=== PATIENT | female | born 1930 | race Caucasian/White ===

== ENCOUNTER 2016-09-29 11:53 | Outpatient (CLI) ==
[2013-07-21 08:06] VITALS: BMI 15.2
[2016-09-29 12:07] LABS: BILIRUBIN,URINE Negative (NEGATIVE); KETONES,URINE Negative (NEGATIVE); LEUKOCYTE ESTERASE ,URINE Negative (NEGATIVE); NITRITE,URINE Negative (NEGATIVE); PROTEIN,URINE Negative (NEGATIVE); URINE, BLOOD Negative (NEGATIVE)
[2016-09-29 12:08] LABS: ADD URINE MICROSCOPIC NO
== END 2016-09-29 11:54 | disposition home or self-care (01) ==
LOC: NONPT 11:53
PROVIDERS: ATTEND Family Medicine
DX: R13.12 Dysphagia, oropharyngeal phase (principal); R52 Pain, unspecified; R41.0 Disorientation, unspecified
CPT/HCPCS: 81001

== ENCOUNTER 2016-11-06 12:50 | Emergency (ER) ==
[2016-11-06 13:09] VITALS: BP 144/79; TEMP 99; BMI 19.9
[2016-11-06 13:31] LABS: BASOPHILS % (AUTO) 0.5 % (0.0-3.0); EOSINOPHILS # (AUTO) 0.2 K/ul (0.0-0.7); EOSINOPHILS % (AUTO) 3.1 % (0.0-7.0); HEMATOCRIT 35.2 % (37.0-47.0); HEMOGLOBIN 11.6 g/dl (12.0-16.0); IMMATURE GRANULOCYTE % (AUTO) 0.7 % (0.0-5.0); LYMPHOCYTES # (AUTO) 2.1 K/uL (0.60-3.4); LYMPHOCYTES % (AUTO) 27.5 (10.0-50.0); MEAN CORPUSCULAR HEMOGLOBIN 29.4 pg (27.0-31.0); MEAN CORPUSCULAR VOLUME 89.3 fl (81.0-99.0); MONOCYTES # (AUTO) 0.5 K/uL (0.4-2.0); MONOCYTES % (AUTO) 6.8 (0-10); NEUTROPHILS # (AUTO) 4.6 K/ul (2.0-6.9); NEUTROPHILS % (AUTO) 61.4; PLATELET COUNT 177 10^3/uL (140-440); RED BLOOD COUNT 3.94 10^6/ul (4.20-5.40); WHITE BLOOD COUNT 7.45 K/ul (4.6-10.2)
[2016-11-06 13:51] LABS: ALBUMIN/GLOBULIN RATIO 0.97; ANION GAP 12.4; BILIRUBIN,TOTAL 0.37 mg/dL (0.00-1.20); BUN/CREATININE RATIO 31.76; CALCIUM 8.8 mg/dL (8.2-10.2); CREATININE 0.85 mg/dL (0.60-1.30); POTASSIUM 4.4 mmol/L (3.5-5.10); TOTAL PROTEIN 6.1 g/dL (5.8-8.1); URIC ACID 5.8 mg/dL (2.4-6.0)
--- NOTE | 2016-11-06 14:13 | CT ---
EXAM: CT lumbar spine without contrast. HISTORY: Lumbar pain COMPARISON: CT lumbar spine 10/17/2012 and multiple priors TECHNIQUE: Serial axial images of the spine were obtained from the lower thoracic spine through the pelvis without contrast. These were viewed in multiple planes. FINDINGS: Vertebral bodies demonstrate normal height, disc space and alignment. There is no acute compression fracture or subluxation. There is mild scattered facet arthropathy. The posterior proc esses are normal. There is no lytic or blastic lesion. There is mild leftward curvature of the lumb ar spine. L1-L2: Normal L2-L3: Mild facet arthropathy with no central or neural foraminal narrowing. L3-L4: Mild facet arthropathy with no central or neural foraminal narrowing. L4-L5: Small disc bulge and facet arthropathy with mild neural foraminal narrowing bilaterally. L5-S1: Small broad-based disc bulge and facet arthropathy with no central or neural foraminal narrow ing. Limited views of the soft tissues demonstrate moderate atherosclerotic disease. There is artifact o bscuring the right kidney. IMPRESSION: 1. No acute compression fracture or subluxation of the lumbar spine. No change since 10/17/2012. 2. Mild scattered degenerative disease with minimal neural foraminal narrowing noted at L4-L5.
--- NOTE | 2016-11-06 14:26 | CT ---
EXAM: CT pelvis HISTORY: Left leg pain with no history of recent trauma. TECHNIQUE: CT pelvis without contrast. Multiplanar images provided. FINDINGS: Comparison may be made to 07/26/2012. Moderately severe atherosclerotic disease. Bowel gas pattern nonobstructive. No ascites or inflamm atory infiltration of the abdominal fat. Urinary bladder appears normal. No uterus is identified. Prominent fatty bilateral inguinal canals. The bones appear significantly demineralized. No acute fracture is identified. Joints are intact. There is moderate symmetric bilateral hip osteoarthritis. Sacroiliac joints are intact with mild to moderate arthropathy. There is no obvious sacral fracture. Facet arthropathy of the lumbosacral j unction is at least moderate. IMPRESSION: 1. The bones appear significantly demineralized. No acute fracture is identified. Joints are intac t. There is moderate symmetric bilateral hip osteoarthritis. Sacroiliac joints are intact with mil d to moderate arthropathy. There is no obvious sacral fracture. Facet arthropathy of the lumbosacr al junction is at least moderate. 2. Atherosclerotic disease.
--- NOTE | 2016-11-06 14:46 | ED.PDOC ---
General ED Provider: Dr. SHREYAS FANG Chief Complaint: Extremity Pain/Injury Stated Complaint: LEFT LEG AND BACK PAIN Time Seen by Physician: 13:00 (NEGATIVE TRAUMA) Information Source: Patient, Family, Fpc, EMT Exam Limitations: No limitations Primary Care Provider: CHARISMA BURTON Nursing and Triage Documentation Reviewed and Agree: Yes Musculoskeletal Complaint Exam - Lower Extremity Complaint/Exam Location of Pain: Reports: Left, Leg ( LOW BACK PAIN) Mechanism of Injury: Reports: No known trauma Onset/Duration: TODAY Symptoms Are: Resolved Onset of Pain: Reports: Hours Initial Severity: Moderate Current Severity: None Location: Reports: Discrete Character: Reports: Aching, Spasmodic, Stiffness Alleviating: Reports: Rest, Position Aggravating: Reports: None Able to Bear Weight: No Associated Signs and Symptoms: Denies: Swelling, Redness, Bruising, Fever, Weakness, Numbness, Tingling DVT Risk Factors: Reports: Recent bedrest Septic Arthritis Risk Factors: Reports: Extremes of age Lower Extremity Findings: Absent: Swelling, Ecchymosis, Abnormal contour, Rotation, Ligamentous instability, Erythema, Warmth, Foreign body, Tenderness, Limited range of motion Differential Diagnoses: Arthritis, Fracture, Sciatica, Strain, Sprain Review of Systems - Review Of Systems Constitutional: Reports: No symptoms Eyes: Reports: No symptoms Ears, Nose, Mouth, Throat: Reports: No symptoms Respiratory: Reports: No symptoms Cardiac: Reports: No symptoms GI: Reports: No symptoms : Reports: No symptoms Musculoskeletal: Reports: Back pain Skin: Reports: No symptoms Neurological: Reports: No symptoms Endocrine: Reports: No symptoms Hematologic/Lymphatic: Reports: No symptoms All Other Systems: Reviewed and Negative Past Medical History - Past Medical History Endocrine: Reports: Dyslipidemia Cardiovascular: Reports: Unknown Respiratory: Reports: Unknown Hematological: Reports: Anemia Gastrointestinal: Reports: None Genitourinary: Reports: None Neuro/Psych: Reports: None Musculoskeletal: Reports: None Cancer: Reports: None Last Menstrual Period: unknown - Surgical History General Surgical History: Reports: Unknown - Family History Family History: Reports: Unknown - Social History Smoking Status: Never smoker Hx Substance Use: No Alcohol Screening: None Physical Exam - Physical Exam Appearance: Well-appearing, No pain distress, Well-nourished Eyes: MAGALY, EOMI, Conjunctiva clear ENT: Ears normal, Nose normal, Oropharynx normal Respiratory: Airway patent, Breath sounds clear, Breath sounds equal, Respirations nonlabored Cardiovascular: RRR, Pulses normal, No rub, No murmur GI/: Soft, Nontender, No masses, Bowel sounds normal, No Organomegaly Musculoskeletal: Normal strength, ROM intact, No edema, No calf tenderness Skin: Warm, Dry, Normal color Neurological: Sensation intact, Motor intact, Reflexes intact, Cranial nerves intact, Alert, Oriented Psychiatric: Affect appropriate, Mood appropriate Interpretation - Radiology Interpretation Radiology Interpretation By: Radiologist Radiology Results: No acute changes Critical Care Note - Critical Care Note Total Time (mins): 0 Course - Course Hematology/Chemistry: 11/06/16 13:28 11/06/16 13:28 Orders, Labs, Meds: Lab Review 11/06/16 13:28 WBC 7.45 RBC 3.94 L Hgb 11.6 L Hct 35.2 L MCV 89.3 MCH 29.4 MCHC 33.0 RDW Coeff of Lorrie 14.8 Plt Count 177 Immature Gran % (Auto) 0.7 Neut % (Auto) 61.4 Lymph % (Auto) 27.5 Mills % (Auto) 6.8 Eos % (Auto) 3.1 Baso % (Auto) 0.5 Immature Gran # (Auto) 0.1 Neut # 4.6 Lymph # 2.1 Mills # 0.5 Eos # 0.2 Baso # 0.0 Sodium 138 Potassium 4.4 Chloride 108 H Carbon Dioxide 22 L Anion Gap 12.4 BUN 27 H Creatinine 0.85 Estimated GFR (MDRD) 63.00 BUN/Creatinine Ratio 31.76 Glucose 142 H Uric Acid 5.8 Calcium 8.8 Total Bilirubin 0.37 AST 19 ALT 25 Alkaline Phosphatase 60 Total Protein 6.1 Albumin 3.0 L Globulin 3.1 Albumin/Globulin Ratio 0.97 Orders Category Date Time Status CBC W/ AUTO DIFF Stat LAB 11/06/16 13:28 Completed COMPREHENSIVE METABOLIC PANEL Stat LAB 11/06/16 13:28 Completed URIC ACID Stat LAB 11/06/16 13:[address] LUMBAR SPINE W/O CONTRAST Stat RADS 11/06/16 13:[address] PELVIS W/O CONTRAST Stat RADS 11/06/16 13:19 Completed Vital Signs: Temp Pulse Resp BP Pulse Ox 11/06/16 12:52 99 F 71 20 144/79 H 94 L Departure - Departure Time of Disposition: 16:00 Disposition: HOME SELF-CARE Discharge Problem: Leg pain, left, Injury of lower extremity Instructions: Leg Pain (ED), Arthralgia (ED), Pancreatitis (ED) Condition: Good Pt referred to PMD for follow-up: No Additional Instructions: Please call your Family Physician as soon as possible to schedule a follow-up appointment. Allergies/Adverse Reactions: Allergies alendronate sodium [From Fosamax] Adverse Reaction (Verified 07/21/13 08:01) amitriptyline HCl [From Elavil] Adverse Reaction (Verified 07/21/13 08:01) atorvastatin calcium [From Lipitor] Adverse Reaction (Verified 07/21/13 08:01) cefaclor [From Ceclor] Adverse Reaction (Verified 07/21/13 08:01) cefadroxil hydrate [From Duricef] Adverse Reaction (Verified 07/21/13 08:01) cefuroxime axetil [From Ceftin] Adverse Reaction (Verified 07/21/13 08:01) cephalexin monohydrate [From Keflex] Adverse Reaction (Verified 07/21/13 08:01) clarithromycin [From Biaxin] Adverse Reaction (Verified 07/21/13 08:01) diphenhydramine HCl [From Benadryl] Adverse Reaction (Verified 07/21/13 08:01) etodolac [From Lodine] Adverse Reaction (Verified 11/06/16 14:00) ezetimibe [From Vytorin 10-10] Adverse Reaction (Verified 07/21/13 08:01) fish derived Adverse Reaction (Verified 07/21/13 08:01) fluvastatin sodium [From Lescol] Adverse Reaction (Verified 07/21/13 08:01) iodine Adverse Reaction (Verified 07/21/13 08:01) meloxicam [From Mobic] Adverse Reaction (Verified 07/21/13 08:01) povidone-iodine [From Betadine] Adverse Reaction (Verified 11/06/16 14:00) rosuvastatin calcium [From Crestor] Adverse Reaction (Verified 07/21/13 08:01) simvastatin [From Vytorin 10-10] Adverse Reaction (Verified 07/21/13 08:01) soap [From Betadine] Adverse Reaction (Verified 11/06/16 14:00) sulfamethoxazole [From Bactrim] Adverse Reaction (Verified 07/21/13 08:01) trimethoprim [From Bactrim] Adverse Reaction (Verified 07/21/13 08:01) choledyl Adverse Reaction (Uncoded 07/21/13 08:01) Home Medications: Ambulatory Orders Acetaminophen [Mapap] 325 mg PO TID 07/21/13 Benzocaine/Menthol [Cepacol Sore Throat Lozenge] 1 lozenge MM PRN PRN 07/21/13 Brimonidine Tartrate Opth [Alphagan P 0.15%] 1 drop OP BEDTIME 07/21/13 Calcium Carbonate [Caltrate 600] 600 mg PO DAILY 07/21/13 Cholecalciferol (Vitamin D3) [Vitamin D] 2,000 unit PO DAILY 07/21/13 Cholecalciferol (Vitamin D3) [Vitamin D] 800 unit PO DAILY 07/21/13 Diclofenac Potassium [Cataflam] 50 mg PO DAILY 07/21/13 Guar Gum [Benefiber] 1 each PO DAILY 07/21/13 Levothyroxine Sodium [Synthroid] 50 mcg PO QDAC 07/21/13 Lorazepam 0.25 mg PO BEDTIME 07/21/13 [place]/Sod Phos/Meth Blue/Hyos [Urogesic-Blue Tablet] 1 each PO Q8HR PRN Olopatadine HCl [Pataday] 1 drop OP DAILY 07/21/13 Omeprazole [Prilosec] 20 mg PO QDAC 07/21/13 Polyvinyl Alcohol/Povidone/Pf [Refresh Classic Eye Drops] 1 each OP TID PRN Propylene Glycol/Peg 400/Pf [Systane 0.3-0.4% Eye Drops] 1 each OP BID 07/21/13 Raloxifene HCl [Evista] 60 mg PO DAILY 07/21/13 Simethicone [Gas Free] 125 mg PO TID PRN 07/21/13 Baclofen 10 mg PO BID 11/06/16 Baclofen 15 mg PO BEDTIME 11/06/16 Carboxymethylcellulose Sodium [Refresh Tears] 15 ml OP Q8HR 11/06/16 Guaifenesin/Dextromethorphan [Guaifenesin Dm Syrup] 10 ml PO Q6HR PRN 11/06/16 Hydroxyzine Pamoate 25 mg PO DAILY 11/06/16 Ipratropium [place] 1 spray NS BID 11/06/16 Ipratropium [place] 1 spray NS TID PRN 11/06/16 Linaclotide [Linzess] 145 mcg PO DAILY 11/06/16 Melatonin 1 - 2 mg PO BEDTIME 11/06/16 Pentosan Polysulfate Sodium [Elmiron] 100 mg PO DAILY 11/06/16 Simethicone 1 - 2 tab PO DAILY 11/06/16 Tramadol HCl/Acetaminophen [Ultracet Tablet] 1 each PO BID PRN 11/06/16 Zinc Oxide [Diaper Rash] 57 gm TP DAILY PRN 11/06/16
== END 2016-11-06 16:20 | disposition home or self-care (01) ==
LOC: ED 12:50
DX: M79.605 Pain in left leg (principal); M54.5 Low back pain; E78.5 Hyperlipidemia, unspecified; D64.9 Anemia, unspecified; Z79.899 Other long term (current) drug therapy
CPT/HCPCS: 36415; 80053; 84550; 85025; 99283

== ENCOUNTER 2017-12-11 09:24 | Outpatient (CLI) | END 2017-12-11 09:42 | disposition short-term general hospital (02) | LOC: AMBL 09:24 | PROVIDERS: ATTEND Emergency Medicine | DX: R41.82 Altered mental status, unspecified (principal); M62.40 Contracture of muscle, unspecified site; G20 Parkinson's disease; Z74.01 Bed confinement status ==

== ENCOUNTER 2018-01-09 16:44 | Outpatient (CLI) | payer OTHER | END 2018-01-09 16:45 | disposition home or self-care (01) | LOC: LAB 16:44 | PROVIDERS: ATTEND Family Medicine | DX: R05 Cough (principal); R09.89 Other specified symptoms and signs involving the circulatory and respiratory systems | CPT/HCPCS: 36415; 80053; 85025 ==

== ENCOUNTER 2018-07-28 21:01 | Emergency (ER) ==
[2018-07-28 21:28] VITALS: BMI 24.4
--- NOTE | 2018-07-28 21:45 | CT ---
EXAM: CT cervical spine without contrast HISTORY: Fall, nek pain TECHNIQUE: Multi-slice transaxial helical with coronal and sagittal reformatted views. 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 No acute fracture or listhesis are appreciated. There is minimal grade 1 anterolisthesis of C5 on C6 of 2.2 mm, grade 1 anterolisthesis of C6 on C7 of 1.0 mm, and grade 1 anterolisthesis of bone C7 on T1 of 1.3 mm. The C5-C6 through C7 -C1 intervertebral joint spaces are severely narrowed. The more cephalad intervertebral levels are mi ldly narrowed diffusely. No acute fractures or lithesis are observed. The prevertebral soft tissues have normal width. The facet alignment is appropriate. The bones are osteopenic. Segmental analysis: No significant disc herniation, central canal stenosis, or neural foramen stenosi s are appreciated. The facets are diffusely hypertrophic. IMPRESSION: 1. No acute fracture or lithesis. 2. Chronic nonunion odontoid process fracture. 3. Diffuse degenerative disc disease. 4. Grade 1 anterolisthesis of C5 on C6, C6 on C7, and C7 on T1 is likely degenerative in etiology. 5. Osteopenia.
--- NOTE | 2018-07-28 21:47 | CT ---
EXAM: CT scan brain without contrast HISTORY: Fall COMPARISON: CT scan brain 10/17/2012 FINDINGS: Contiguous axial images obtained from the skull base to the convexities without contrast u tilizing 5-mm collimation. Sagittal and coronal reconstructions were imaged and reviewed.. The erlin ent is canted within the scanner. The ventricles and CSF spaces are prominent compatible with age ap propriate atrophy. There is periventricular hypodensity noted compatible with chronic microvascular disease.. Extensive mucoperiosteal thickening is seen within left maxillary sinus. Multiple air cristal ls are opacified in the bilateral ethmoid sinus. IMPRESSION: No acute intracranial findings
--- NOTE | 2018-07-28 21:53 | CT ---
Exam: CT of the chest without intravenous contrast. Comparison: CT thorax performed 10/17/2012. Reason for exam: Right shoulder pain. FINDINGS: Is limited by motion artifact. There is opacification of the partially imaged left maxill sridhar sinus. There is a partially imaged chronic-appearing fracture of the dens with sclerotic change. Comminuted fracture of the right clavicle best seen on coronal image number 16. Questionable fracture of the manubrium. Small left-sided pleural effusion with basilar atelectasis. The aorta is normal in course and caliber. Atherosclerotic disease is seen within the aorta and dist al arterial vasculature including the coronary vessels. Degenerative changes are seen in the cervical and thoracic spine. Impression: 1. Displaced fracture of the right clavicle adjacent to the sternoclavicular joint space best seen o n coronal image number 16. 2. Likely minimally displaced fracture of the sternum best seen on axial image number 36. 3. Chronic-appearing partially imaged fracture of the C2 vertebral body. Please see CT examination of the cervical spine performed on the same day for further characterization. 4. Opacification of the partially imaged left maxillary sinus.
--- NOTE | 2018-07-28 22:01 | ED.PDOC ---
General ED Provider: Dr. ROLO VALENZUELA Chief Complaint: Fall Stated Complaint: [facility] fell [facility] the [facility] during transfer. She is demented but has pain with movement of the right shoulder. Time Seen by Physician: 21:10 Mode of Arrival: Ambulance Information Source: Alf, EMT Exam Limitations: Dementia Primary Care Provider: CHARISMA BURTON Nursing and Triage Documentation Reviewed and Agree: Yes Does patient meet sepsis criteria?: No System Inflammatory Response Syndrome: Not Applicable Sepsis Protocol: For patient's 13 years and over: Temp is 96.8 and below OR 101 and greater Pulse >90 BPM Resp >20/minute Acutely Altered Mental Status Are patient's symptoms suggestive of a new infection, such as: -Pneumonia -Skin, Soft Tissue -Endocarditis -UTI -Bone, Joint Infection -Implantable Device -Acute Abdominal Infection -Wound Infection -Meningitis -Blood Stream Catheter Infection -Unknown Trauma/Injury Complaint Exam - Trauma Complaint/Exam Location of Pain or Injury: Reports: RUE (shoulder ) Mechanism of Injury: Reports: Fall Onset/Duration: just prior to arrival Symptoms Are: Still present Timing of Treatment: Immediate Aggravating: Reports: Movement Associated Signs and Symptoms: Denies: LOC, Lethargy, Vomiting, Bleeding : No Glascow Coma Scale (see protocol): limited by dementia Trauma Findings: Present: Limited ROM (right shoulder due to pain.) Differential Diagnoses: Fracture, Sprain, Strain Review of Systems - Review Of Systems Constitutional: Reports: No symptoms All Other Systems: Other (Limited due to dementia) Past Medical History - Past Medical History Endocrine: Reports: Dyslipidemia Cardiovascular: Reports: Unknown Respiratory: Reports: Unknown Hematological: Reports: Anemia Gastrointestinal: Reports: None Genitourinary: Reports: None Neuro/Psych: Reports: None Musculoskeletal: Reports: None Cancer: Reports: None Last Menstrual Period: hyst and menopausal - Surgical History General Surgical History: Reports: Unknown - Family History Family History: Reports: Unknown - Social History Smoking Status: Never smoker Hx Substance Use: No Alcohol Screening: None - Immunizations Tetanus Shot up to Date: (unknown) Physical Exam - Physical Exam Appearance: Ill-appearing Ill-appearing: Mild Pain Distress: Moderate Eyes: MAGALY, EOMI, Conjunctiva clear Neck: Supple Respiratory: Airway patent, Breath sounds clear, Breath sounds equal, Respirations nonlabored Cardiovascular: RRR, Pulses normal, No rub, No murmur Musculoskeletal: Limited ROM (right shoulder ) Skin: Warm, Dry, Normal color Neurological: Sensation intact, Motor intact, Reflexes intact, Cranial nerves intact, Alert, Oriented Interpretation - Radiology Interpretation Radiology Interpretation By: Radiologist Radiology Results: Negative Exam Interpreted: CT Scan (head and C spine ) Radiology Interpretation By: Radiologist Radiology Results: Positive Exam Interpreted: CT Scan (Chest with Displaced fracture of the right clavical adjucent to the the Sterno clavicular joint, Displaced fracture of sturnum ) Critical Care Note - Critical Care Note Total Time (mins): 0 Course - Course Orders, Labs, Meds: Orders Category Date Time Status Morphine Sulfate [Morphine 2 mg/ml Syringe] MEDS 07/28/18 22:05 Discontinued 2 mg IM ONCE STA CT CERVICAL SPINE W/O CONTRAST Stat RADS 07/28/18 21:[address] CHEST W/O CONTRAST Stat RADS 07/28/18 21:[address] HEAD W/O CONTRAST Stat RADS 07/28/18 21:10 Completed Medications Discontinued Medications Generic Name Dose Route Start Last Admin Trade Name Freq PRN Reason Stop Dose Admin Morphine Sulfate 2 mg 07/28/18 22:05 07/28/18 22:08 Morphine 2 Mg/Ml Syringe IM 07/28/18 22:06 2 mg ONCE STA Administration Vital Signs: Temp Pulse Resp BP Pulse Ox 07/28/18 22:28 97.7 F 76 18 132/78 97 07/28/18 21:02 97.9 F 72 20 139/96 H 97 Departure - Departure Time of Disposition: 22:05 Disposition: TRANSFER SNF Discharge Problem: Clavicular fracture Qualifiers: Encounter type: initial encounter Clavicle location: sternal end Fracture type : closed Fracture alignment: posteriorly displaced Laterality: right Qualified Code(s): S42.014A - Posterior displaced fracture of sternal end of right clavicle, initial encounter for closed fracture Instructions: Clavicle Fracture (ED), Shoulder Pain (ED) Condition: Stable Pt referred to PMD for follow-up: Yes IPMP verified?: No Additional Instructions: Take Medications as prescribed Follow up with PCP in 2 days Prescriptions: Hydrocodone Bit/Acetaminophen [[place] 5-325] 1 each PO Q6HR PRN #15 tablet PRN Reason: severe pain Allergies/Adverse Reactions: Allergies alendronate sodium [From Fosamax] Adverse Reaction (Verified 07/28/18 21:18) amitriptyline HCl [From Elavil] Adverse Reaction (Verified 07/28/18 21:18) atorvastatin calcium [From Lipitor] Adverse Reaction (Verified 07/28/18 21:18) cefaclor [From Ceclor] Adverse Reaction (Verified 07/28/18 21:18) cefadroxil hydrate [From Duricef] Adverse Reaction (Verified 07/28/18 21:18) cefuroxime axetil [From Ceftin] Adverse Reaction (Verified 07/28/18 21:18) cephalexin monohydrate [From Keflex] Adverse Reaction (Verified 07/28/18 21:18) clarithromycin [From Biaxin] Adverse Reaction (Verified 07/28/18 21:18) diphenhydramine HCl [From Benadryl] Adverse Reaction (Verified 07/28/18 21:18) etodolac [From Lodine] Adverse Reaction (Verified 07/28/18 21:18) ezetimibe [From Vytorin 10-10] Adverse Reaction (Verified 07/28/18 21:18) fish derived Adverse Reaction (Verified 07/28/18 21:18) fluvastatin sodium [From Lescol] Adverse Reaction (Verified 07/28/18 21:18) iodine Adverse Reaction (Verified 07/28/18 21:18) meloxicam [From Mobic] Adverse Reaction (Verified 07/28/18 21:18) povidone-iodine [From Betadine] Adverse Reaction (Verified 07/28/18 21:18) rosuvastatin calcium [From Crestor] Adverse Reaction (Verified 07/28/18 21:18) simvastatin [From Vytorin 10-10] Adverse Reaction (Verified 07/28/18 21:18) soap [From Betadine] Adverse Reaction (Verified 07/28/18 21:18) sulfamethoxazole [From Bactrim] Adverse Reaction (Verified 07/28/18 21:18) trimethoprim [From Bactrim] Adverse Reaction (Verified 07/28/18 21:18) choledyl Adverse Reaction (Uncoded 07/28/18 21:18) Home Medications: Ambulatory Orders Acetaminophen [Mapap] 650 mg PO Q6H PRN 07/21/13 Guar Gum [Benefiber] 1 each PO DAILY 07/21/13 Olopatadine HCl [Pataday] 1 drop OP DAILY 07/21/13 Omeprazole [Prilosec] 20 mg PO QDAC 07/21/13 Propylene Glycol/Peg 400/Pf [Systane 0.3-0.4% Eye Drops] 1 each OP BID 07/21/13 Raloxifene HCl [Evista] 60 mg PO DAILY 07/21/13 Simethicone [Gas Free] 125 mg PO TID PRN 07/21/13 Baclofen 5 mg PO BID 11/06/16 Baclofen 10 mg PO BEDTIME 11/06/16 Linaclotide [Linzess] 145 mcg PO DAILY 11/06/16 Melatonin 3 mg PO BEDTIME 11/06/16 Zinc Oxide [Diaper Rash] 57 gm TP Q8H PRN 11/06/16 Brimonidine Tartrate Opth [Alphagan P 0.15%] 1 drop EACHEYE BEDTIME 07/28/18 Calcium Carbonate/Vitamin D3 [Os-Sd 500-Vit D3 200 Caplet] 1 tab PO DAILY 07/28 Clotrimazole [Lotrimin] 1 applic TP Q8H PRN 07/28/18 Hydrocodone Bit/Acetaminophen [[place] 5-325] 1 each PO Q6HR PRN #15 tablet Ipratropium [place] 1 spray NS Q8H 07/28/18 Levothyroxine Sodium [Synthroid] 50 mcg PO QDAC 07/28/18 Pentosan Polysulfate Sodium [Elmiron] 100 mg PO TID 07/28/18 Disposition Discussed With: Other ([facility] staff )
[2018-07-28] MEDS ORDERED: MORPHINE 2 MG/ML SYRINGE IM STA (22:05)
[2018-07-28 22:29] VITALS: BP 132/78; TEMP 97.7
== END 2018-07-28 23:00 ==
LOC: ED 21:01
DX: M25.511 Pain in right shoulder (principal); F03.90 Unspecified dementia, unspecified severity, without behavioral disturbance, psychotic disturbance, mood disturbance, and anxiety; S42.014A Posterior displaced fracture of sternal end of right clavicle, initial encounter for closed fracture; W19.XXXA Unspecified fall, initial encounter
CPT/HCPCS: 96372; 99285